=== PATIENT | female | born 1980 | race Caucasian/White ===

== ENCOUNTER 2024-12-05 10:18 | Observation (INO) | payer OTHER ==
[~2024-12-05] VITALS: Ht 162.6 cm; Wt 83.9 kg
[~2024-12-05 10:18] MED LIST: LACRILUBE (AKWA TEARS) OPHTH OINT 3.5 GM As Ordered ONE; LIDOCAINE 2% 100 MG/5 ML SDV (FOR ANES.) As Ordered ONE; MIDAZOLAM INJ 2 MG/2 ML VIAL As Ordered ONE; ONDANSETRON 4MG 2ML VIAL As Ordered ONE; PHEN37.511 PO; ROCURONIUM BROMIDE 50MG/5ML VIAL As Ordered ONE; SEVOFLURANE INHAL SOLN 250 ML BTL As Ordered ONE; dexAMETHasone 4 MG/ML 1 ML VIAL As Ordered ONE; dexmedeTOMIDine (4 MCG/ML) 200 MCG/50 ML BTL As Ordered ONE
[2024-12-05 11:30] LABS: HCG, SERUM QUALITATIVE NEGATIVE (NEGATIVE)
[2024-12-05] MEDS: ceFAZolin SOD 2 GM IV ONCE IV ONE (13:45)
[2024-12-05] MEDS: HEPARIN SOD 5000 UNITS/ML 1 ML VIAL/SYRINGE SQ ONE (13:55)
[2024-12-05] MEDS: GENTAMICIN SULF 80 MG/2 ML VIAL As Ordered ONE (14:20)
[2024-12-05] MEDS ORDERED: PHENYLephrine 500MCG 5ML (100MCG/ML) SYRINGE As Ordered ONE (14:23)
[2024-12-05] MEDS ORDERED: ACETAMINOPHEN 1000MG/100ML IV BAG As Ordered ONE (14:59)
[2024-12-05] MEDS ORDERED: SUGAMMADEX SODIUM 200 MG/2 ML VIAL As Ordered ONE (15:13)
[2024-12-05] MEDS ORDERED: HYDROmorphone HCL 2 MG/ML 1 ML VIAL As Ordered ONE (15:56)
[2024-12-05] MEDS ORDERED: HYDROMORPHONE HCL 0.5 MG/0.5 ML SYRINGE IV PRN (19:10)
[2024-12-05] MEDS ORDERED: ONDANSETRON 4MG 2ML VIAL IV PRN (19:10)
[2024-12-05] MEDS ORDERED: ACETAMINOPHEN 325 MG TAB PO PRN (19:25)
[2024-12-05 20:14] VITALS: BP 137/89; TEMP 97.2
[2024-12-05 20:44] VITALS: BP 146/91; TEMP 96.8; O2SAT 95
[2024-12-05 21:45] VITALS: BP 149/89; TEMP 97; O2SAT 95
[2024-12-05] MEDS: FLUCONAZOLE 100 MG TAB PO ONE (21:54)
[2024-12-05] MEDS: traMADol 50 MG TAB PO PRN (21:55)
[2024-12-05] MEDS: LR 1,000 ML IV SCH ×2 (21:56→22:34)
[2024-12-05] MEDS: ceFAZolin SODIUM 2 GM in DEXTROSE 5% (D5W) ADV/MINI-BAG 50 ML IV SCH (22:29)
[2024-12-05 22:45] VITALS: BP 143/89; TEMP 97.8; O2SAT 98
[2024-12-05] MEDS: ONDANSETRON 4MG 2ML VIAL IV PRN (23:27)
[2024-12-05 23:45] VITALS: BP 127/75; TEMP 96.8; O2SAT 95
[2024-12-06] MEDS: LR 1,000 ML IV SCH (03:11)
[2024-12-06] MEDS: PERCOCET 5MG/325MG TAB PO PRN (03:23)
[2024-12-06 06:46] VITALS: BP 144/95; TEMP 98.1; O2SAT 96
[2024-12-06] MEDS ORDERED: HOME MED LIST COMPLETE! XX SCH (08:30)
[2024-12-06 10:00] VITALS: BP 132/85; TEMP 98.1
[2024-12-06] MEDS ORDERED: PERCOCET PO (13:35)
[2024-12-06 14:00] VITALS: BP 141/82; TEMP 98.1
== END 2024-12-06 16:30 | disposition home or self-care (01) ==
LOC: M SDC 10:18 → M RR INP 10:19 → M MS5PR 20:00
PROVIDERS: ADMIT Plastic Surgery Surgery of the Hand; ATTEND Plastic Surgery Surgery of the Hand
DX: N62 Hypertrophy of breast (principal); Z88.5 Allergy status to narcotic agent; Z88.0 Allergy status to penicillin
CPT/HCPCS: 19318; 36415; 84703; 88305; 96361; 96365; 96366; 96375; J0131; J0665; J0666; J0688; J1100; J1171; J1580; J2250; J2371; J2405; J3010